=== PATIENT | male | born 1985 | race Caucasian/White ===

== ENCOUNTER 2016-12-29 19:25 | Emergency (ER) | payer SELFPAY ==
[2016-12-29 19:40] VITALS: BP 149/90
--- NOTE | 2016-12-29 19:53 | EDM.PDOC ---
ED HPI Skin/Rash - General Chief Complaint: Skin Complaint Stated Complaint: FACIAL SWELLING RIGHT SIDE Time Seen by Provider: 12/29/16 19:37 Source: Reports: Patient History Limitations: Reports: No limitations - History of Present Illness INITIAL COMMENTS - FREE TEXT/NARRATIVE: The patient presents with left sided facial swelling. This started last night. He has mild pain. He has no fever or chills. He has had some trouble with his teeth in the past. Timing: Reports: worse Location, Skin: Reports: face (Left side) Quality: Reports: Ache Severity: mild Place of Occurrence: home - Related Data Allergies Allergy/AdvReac Type Severity Reaction Status Date / Time No Known Allergies Allergy Verified 12/29/16 19:39 Home Meds: Ambulatory Orders Medication Instructions Recorded Confirmed Penicillin V Potassium 500 mg PO Q6HR #40 tab 12/29/16 Past Medical History Dermatologic History: Reports: Other (see below) Other Dermatologic History: boils cysts I&D - Past Surgical History GI Surgical History: Reports: Appendectomy ED ROS GENERAL - Review of Systems Review Of Systems: See Below Constitutional: Reports: no symptoms HEENT: Reports: Other (Left facial swelling) Respiratory: Reports: No Symptoms Cardiovascular: Reports: No symptoms Endocrine: Reports: no symptoms GI/Abdominal: Reports: No symptoms : Reports: no symptoms Musculoskeletal: Reports: no symptoms ED EXAM, SKIN/RASH Exam: See Below Exam Limited By: No limitations General Appearance: alert, no apparent distress Ears: normal external exam Nose: normal inspection Throat/Mouth: Other Head: atraumatic (Left lower jaw edema with mild pain upon palpation. Erythema and pain upon palpation to a premolar in the left lower jaw.), normocephalic Neck: normal inspection Respiratory/Chest: no respiratory distress Course - Vital Signs Last Recorded V/S: Last Vital Signs Temp 97.5 F 12/29/16 19:35 Pulse 71 12/29/16 19:35 Resp 20 12/29/16 19:35 BP 149/90 H 12/29/16 19:35 Pulse Ox 100 12/29/16 19:35 Departure - Departure Time of Disposition: 19:55 Disposition: Home, Self-Care 01 Condition: good Clinical Impression: Dental abscess Prescriptions: Penicillin V Potassium 500 mg PO Q6HR #40 tab Forms: ED Department Discharge Additional Instructions: Take the pencillin 4 times per day. Put warm compresses on the left side of your jaw 2 to 3 times per day. Please return if you are worse.
== END 2016-12-29 20:07 | disposition home or self-care (01) ==
LOC: JD.ED 19:25
DX: K04.7 Periapical abscess without sinus (principal); Z90.49 Acquired absence of other specified parts of digestive tract
CPT/HCPCS: 99283